=== PATIENT | male | born 1980 | race Two or more races ===

== ENCOUNTER 2020-04-25 18:10 | Emergency (ER) | payer SELFPAY ==
[~2020-04-25] VITALS: Ht 162.6 cm; Wt 105.0 kg
--- NOTE | 2020-04-25 18:18 | NUR ---
ROMÁN. REPORT RECEIVED FROM EMS. PT FELT POPPED SENSATION ON L MID Q ABD, THEN PT C/O ABD PAIN AT WORK. DENIES N/V/D. PT HAS BEEN FEELING SIMILAR PAIN FOR 4 DAYS BUT IT WORSE TODAY. TONGAN SPEAKING. ABX TAKING D/T STREPT THROAT AT THIS TIME. [employer] GIVEN [employer] SUPERVISOR BY EMS. PT'S AOX4. RESPS EVEN AND UNLABORED. BP/SPO2 MONITORS IN PLACE. CALL LIGHT WITHIN REACH. RAILS UP X 2.
--- NOTE | 2020-04-25 18:52 | NUR ---
REPORT GIVEN TO MIESHA HERNANDEZ.
[2020-04-25] MEDS ORDERED: ONDANSETRON 2MG/ML, 2ML IVPush ONE (19:00)
[2020-04-25] MEDS ORDERED: FAMOTIDINE 20 MG/2 ML IV ONE (19:00)
[2020-04-25] MEDS ORDERED: MAALOX/HYOSCYAMINE/LIDOCAINE 45 ML BTL PO ONE (19:00)
[2020-04-25] MEDS ORDERED: MORPHINE SULFATE 4 MG/ML, 1ML IVPush PRN (19:00)
[2020-04-25 19:20] LABS: BASOPHILS # (AUTO) 0.05 x10^3/uL (0-0.1); BASOPHILS % (AUTO) 0 % (0-1); EOSINOPHILS # (AUTO) 0.07 x10^3/uL (0-0.4); EOSINOPHILS % (AUTO) 1 % (1-7); LYMPHOCYTES # (AUTO) 3.06 x10^3/uL (1-3.4); LYMPHOCYTES % (AUTO) 25 % (22-44); MD NO; MEAN CORPUSCULAR HEMOGLOBIN 30.6 pg (27.5-34.5); MEAN CORPUSCULAR HGB CONC 33.2 g/dL (33.2-36.2); MEAN CORPUSCULAR VOLUME 92.4 fL (81-97); MEAN PLATELET VOLUME 7.7 fL (7.4-10.4); MONOCYTES # (AUTO) 0.82 x10^3/uL (0.2-0.8); MONOCYTES % (AUTO) 7 % (2-9); NEUTROPHILS # (AUTO) 8.21 x10^3/uL (1.8-6.8); NEUTROPHILS % (AUTO) 67 % (42-75); PLATELET COUNT 305 x10^3/uL (130-400); RED BLOOD COUNT 4.88 x10^6/uL (4.38-5.82); RED CELL DISTRIBUTION WIDTH 13.2 % (9.4-14.8)
[2020-04-25] MEDS ORDERED: FAMOTIDINE 20 MG/2 ML ONE (19:22)
[2020-04-25] MEDS ORDERED: ONDANSETRON 2MG/ML, 2ML ONE (19:22)
[2020-04-25] MEDS ORDERED: MORPHINE SULFATE 4 MG/ML, 1ML ONE (19:22)
[2020-04-25] MEDS ORDERED: MAALOX/HYOSCYAMINE/LIDOCAINE 45 ML BTL ONE (19:22)
[2020-04-25 19:24] LABS: ALANINE AMINOTRANSFERASE 123 U/L (12-78); ALBUMIN 3.2 g/dL (3.4-5.0); ANION GAP 9 mmol/L (5-15); CALCIUM 8.1 mg/dL (8.5-10.1); CHLORIDE 108 mmol/L (98-107); CREATININE 0.92 mg/dL (0.7-1.3)
[2020-04-25 19:27] LABS: ALKALINE PHOSPHATASE 75 U/L (45-117); BILIRUBIN,TOTAL 0.3 mg/dL (0.2-1.0); TOTAL PROTEIN 7.6 g/dL (6.4-8.2)
--- NOTE | 2020-04-25 19:38 | NUR ---
PT RESTING ON NIA, UPDATED ON POC. MONITORING IN PLACE, CALL LIGHT WITHIN REACH.
--- NOTE | 2020-04-25 20:53 | NUR ---
PT UPDATED ON POC, MONITORING IN PLACE, CALL LIGHT WITHIN REACH. ROOM DIMMED FOR PT COMFORT.
[2020-04-25] MEDS ORDERED: OMNIPAQUE 350 MG/ML, 75ML BOTTLE ONE (20:54)
[2020-04-25] MEDS ORDERED: AZITHROMYCIN 500 MG TABLET ONE (21:18)
[2020-04-25] MEDS ORDERED: AZITHROMYCIN 500 MG TABLET PO ONE (21:30)
[2020-04-25 22:06] VITALS: BP 125/67
== END 2020-04-25 22:11 | disposition home or self-care (01) ==
LOC: ED 21:54
DX: R09.1 Pleurisy (principal); Z20.828 Contact with and (suspected) exposure to other viral communicable diseases; J15.9 Unspecified bacterial pneumonia; R94.31 Abnormal electrocardiogram [ECG] [EKG]
CPT/HCPCS: 36415; 71045; 71275; 80053; 83690; 85025; 87635; 93005; 96374; 96375; 99285; J2270; J2405; J3490; Q9967